=== PATIENT | female | born 1995 | race African-American/Black ===

== ENCOUNTER 2022-02-15 22:50 | Emergency (ER) | payer MEDICAID ==
[~2022-02-15] VITALS: Ht 188 cm; Wt 78.0 kg
[2022-02-15 22:55] VITALS: BP 119/71
== END 2022-02-15 23:57 | disposition left against medical advice (07) ==
LOC: ER 22:50
DX: M79.18 Myalgia, other site (principal); M79.602 Pain in left arm
CPT/HCPCS: 81025; 99283